=== PATIENT | male | born 1970 | race Caucasian/White ===

== ENCOUNTER 2018-01-05 15:17 | Emergency (ER) | payer OTHER ==
[~2018-01-05] VITALS: Ht 187.9 cm; Wt 95.3 kg
[2018-01-05] MEDS ORDERED: AMOXICILLIN500 M2 PO ×2 (15:37→15:40)
[2018-01-05] MEDS ORDERED: NORCO 10-325 T1 EACH PO (15:38)
[2018-01-05] MEDS ORDERED: CLINDAMYCIN HC300 MG PO (15:38)
== END 2018-01-05 15:43 | disposition home or self-care (01) ==
LOC: ED 15:17
DX: K04.7 Periapical abscess without sinus (principal); F17.200 Nicotine dependence, unspecified, uncomplicated

== ENCOUNTER 2023-12-26 09:37 | Emergency (ER) | payer OTHER ==
[~2023-12-26] VITALS: Ht 187.9 cm; Wt 92.5 kg
[~2023-12-26 09:37] MED LIST: AMOXICILLIN500 M2 PO; CLINDAMYCIN HC300 MG PO; NORCO 10-325 T1 EACH PO
[2023-12-26] MEDS ORDERED: FENOFIBRATE48 M1 PO (09:57)
[2023-12-26] MEDS ORDERED: PROPRANOLOL HCL80 M1 PO (09:57)
[2023-12-26] MEDS ORDERED: ROSUVASTATIN CA20 MG PO (09:57)
[2023-12-26] MEDS ORDERED: methylPREDNISolone sod succ 125 MG VIAL IM ONE (10:20)
[2023-12-26 10:25] LABS: BASO % 0.6 % (0.0-1.0); EOS # 0.1 10*3/uL (0.0-0.4); EOS % 2.2 % (1.0-4.0); HEMATOCRIT 47.3 % (42.0-52.0); LYMPH # 1.5 10*3/uL (1.3-4.4); LYMPH % 29.1 % (27.0-41.0); MEAN CELL VOLUME 96.5 fl (80.0-94.0); MEAN CORPUSCULAR HGB 31.6 pg (27.0-31.0); MEAN CORPUSCULAR HGB CONC 32.8 g/dl (33.0-37.0); MONO # 0.5 10*3/uL (0.1-1.0); MONO % 8.8 % (3.0-9.0); NEUT % 59.1 % (47.0-73.0); PLATELET COUNT AUTOMATED 198 10*3/uL (130-400); RED CELL DISTRI WIDTH 12.6 % (0-14.5); WHITE BLOOD COUNT 5.1 10*3/uL (4.8-10.8)
[2023-12-26 10:52] LABS: BUN 12 mg/dl (9-23); CHLORIDE 109 mmol/L (98-107); POTASSIUM 4.3 mmol/L (3.4-5.1)
[2023-12-26] MEDS ORDERED: PREDNISONE50 MG PO (11:51)
== END 2023-12-26 11:58 | disposition home or self-care (01) ==
LOC: ED 09:37
PROVIDERS: Internal Medicine
DX: M54.10 Radiculopathy, site unspecified (principal); R20.0 Anesthesia of skin; R20.2 Paresthesia of skin